=== PATIENT | female | born 1985 | race Native Hawaiian/Other Pacific Islander ===

== ENCOUNTER 2016-04-11 21:46 | Emergency (ER) | payer OTHER ==
[~2016-04-11] VITALS: Ht 162.6 cm; Wt 83.9 kg
[2016-04-11 22:49] VITALS: BP 153/92; TEMP 98.4
[2016-04-11] MEDS ORDERED: CARDIZEM60 M1 PO (22:53)
== END 2016-04-11 22:54 | disposition home or self-care (01) ==
LOC: ED 21:46
DX: R51 Headache (principal); I10 Essential (primary) hypertension; Z91.19 Patient's noncompliance with other medical treatment and regimen
CPT/HCPCS: 99282

== ENCOUNTER 2016-04-19 02:21 | Emergency (ER) | payer OTHER ==
[~2016-04-19] VITALS: Ht 165.1 cm; Wt 86.2 kg
[~2016-04-19 02:21] MED LIST: CARDIZEM60 M1 PO
[2016-04-19 05:03] VITALS: BP 141/100; TEMP 98.5
== END 2016-04-19 05:04 | disposition home or self-care (01) ==
LOC: ED 02:21
DX: I10 Essential (primary) hypertension (principal); F41.9 Anxiety disorder, unspecified
CPT/HCPCS: 99283

== ENCOUNTER 2018-12-04 13:26 | Emergency (ER) | payer OTHER ==
[~2018-12-04] VITALS: Ht 165.1 cm; Wt 86.6 kg
[2018-12-04 13:36] VITALS: TEMP 98.1
[2018-12-04 14:21] LABS: PLATELET COUNT 289 K/uL (152-353)
[2018-12-04 14:42] LABS: SODIUM 138 mmol/L (136-145)
[2018-12-04 15:35] VITALS: BP 138/82
== END 2018-12-04 15:34 | disposition home or self-care (01) ==
LOC: ED 13:26
PROVIDERS: Family Medicine
DX: I10 Essential (primary) hypertension (principal); R07.89 Other chest pain; F17.210 Nicotine dependence, cigarettes, uncomplicated
CPT/HCPCS: 80053; 81000; 81025; 82550; 84484; 85027; 93005; 99283

== ENCOUNTER 2019-10-04 09:38 | Emergency (ER) | payer OTHER ==
[~2019-10-04] VITALS: Ht 165.1 cm; Wt 86.6 kg
[2019-10-04 09:46] VITALS: BP 128/95; TEMP 99.4
== END 2019-10-04 11:06 | disposition home or self-care (01) ==
LOC: ED 09:38
DX: S20.212A Contusion of left front wall of thorax, initial encounter (principal)
CPT/HCPCS: 99283

== ENCOUNTER 2019-10-20 17:27 | Emergency (ER) | payer OTHER ==
[~2019-10-20] VITALS: Ht 165.1 cm; Wt 86.6 kg
[2019-10-20] MEDS ORDERED: LEVO0.1T6 PO (18:27)
[2019-10-20] MEDS ORDERED: LISI20TA31 PO (18:27)
[2019-10-20 18:39] LABS: PLATELET COUNT 311 K/uL (152-353)
[2019-10-20 18:51] LABS: POTASSIUM 4.2 mmol/L (3.6-5.2)
[2019-10-20 19:32] VITALS: BP 122/76; TEMP 98
== END 2019-10-20 19:34 | disposition home or self-care (01) ==
LOC: ED 17:27
PROVIDERS: Emergency Medicine
DX: J12.89 Other viral pneumonia (principal); Z20.828 Contact with and (suspected) exposure to other viral communicable diseases; F17.210 Nicotine dependence, cigarettes, uncomplicated
CPT/HCPCS: 80053; 85027; 87502; 87635; 87651; 99283; U0003

== ENCOUNTER 2019-11-29 13:11 | Outpatient (CLI) | payer OTHER ==
[~2019-11-29 13:11] MED LIST changes: +LEVO0.1T6 PO; +LISI20TA31 PO
== END 2019-11-29 23:46 | disposition home or self-care (01) ==
LOC: LAB 13:11
DX: U07.1 COVID-19 (principal); R68.89 Other general symptoms and signs; Z11.59 Encounter for screening for other viral diseases
CPT/HCPCS: 87635; G2023; U0003

== ENCOUNTER 2020-06-09 15:36 | Outpatient (CLI) | payer OTHER | END 2020-06-09 21:23 | disposition home or self-care (01) | LOC: US 15:36 | PROVIDERS: ATTEND Nurse Practitioner Family | DX: R13.10 Dysphagia, unspecified (principal) ==

== ENCOUNTER 2021-03-24 16:59 | Emergency (ER) | payer OTHER ==
[~2021-03-24] VITALS: Ht 165.1 cm; Wt 86.6 kg
[2021-03-24 17:05] VITALS: BP 152/97; TEMP 99
== END 2021-03-24 19:30 | disposition home or self-care (01) ==
LOC: ED 16:59
DX: B86 Scabies (principal)
CPT/HCPCS: 99281

== ENCOUNTER 2021-10-20 20:44 | Emergency (ER) | payer OTHER ==
[~2021-10-20] VITALS: Ht 165.1 cm; Wt 86.2 kg
[2021-10-20 21:05] VITALS: BP 158/109; TEMP 98.9
== END 2021-10-21 | disposition home or self-care (01) ==
LOC: ED 20:44
DX: H65.191 Other acute nonsuppurative otitis media, right ear (principal); J32.8 Other chronic sinusitis; J02.9 Acute pharyngitis, unspecified; Z20.822 Contact with and (suspected) exposure to COVID-19; F17.210 Nicotine dependence, cigarettes, uncomplicated
CPT/HCPCS: 87502; 87635; 87651; 99282; U0003